=== PATIENT | female | born 1960 | race Caucasian/White ===

== ENCOUNTER → 2017-04-13 | Outpatient (CLI) | payer OTHER ==
--- NOTE | ~2017-04-13 | MY11 ---
[facility] A Service of [facility] RADIOLOGY TEXT RESULTS PATIENT: MARCE ARIZA LOCATION: [facility] : 62 UNIT #: [id number] AGE: [address]: Janett Gottlieb MD SEX: F ORDER DR: [id number] [facility] [address] [place], [place] [address] [id number] O MR#: [id number] Acc #: [id number] NAME: MARCE ARIZA : 1960 SEX: F STUDY DATE/TIME: 04/13/2017 16:54 UNIT: [facility] ROOM: STUDY DESCRIPTION: MY Mammogram Screening Dig Roberto Attending Physician: Janett Gottlieb M.D. Ordering Physician: Janett Gottlieb M.D. Primary Care Physician: Janett Gottlieb M.D. MEDICAL IMAGING REPORT This report is preliminary unless electronic signature is present EXAM Digital screening mammogram, 04/13/2017 HISTORY 57-year-old woman no risk elevation. Annual screening. COMPARISON 09/17/2008, 05/05/2012 FINDINGS Digital imaging of each breast was completed utilizing screening protocol. Review includes FDA-approved CAD device. Breast parenchyma is fatty replaced. Subareolar duct prominence is noted in each breast. Several benign calcifications project in the right breast. I see no suspicious mass or suspicious microcalcifications and no architectural deformity. IMPRESSION Negative mammogram. Annual screening recommended. Patients over the age of 40 are entered into a reminder system with target due date for the next mammogram. A result letter will also be sent to the patient. BIRADS: 1 Negative Dictated by... Aubrey Joseph M.D. THIS IS AN ELECTRONICALLY VERIFIED REPORT Aubrey Joseph M.D. at 04/25/2017 8:10 AM SHEA/berenice [facility] A Service of [facility] RADIOLOGY TEXT RESULTS PATIENT: MARCE ARIZA LOCATION: [facility] : 62 UNIT #: [id number] AGE: [address]: Janett Gottlieb MD SEX: F ORDER DR: TD: 04/14/2017 08:38 JOB #: [id number] MEDICAL IMAGING REPORT Page 1 of 1 COPY
== END | disposition home or self-care (01) ==
LOC: CWCC 16:45
DX: Z12.31 Encounter for screening mammogram for malignant neoplasm of breast (principal)
CPT/HCPCS: G0202